=== PATIENT | male | born 1965 | race Hispanic/Latino ===

== ENCOUNTER 2020-06-03 14:29 | Emergency (ER) | payer OTHER, SELFPAY ==
[2020-06-03 16:07] LABS: Absolute Lymphocytes (CBC) 1.5 K/uL (0.7-4.9); Basophils % 0.4 % (0-1.3); Hematocrit 37.9 % (39.6-49.0); MPV 9.4 fL (7.6-11.3); RBC Red Blood Cell Count 4.35 M/uL (4.33-5.43)
[2020-06-03 16:12] LABS: Protime INR 1.07
[2020-06-03 16:34] LABS: ALT/SGPT 38 U/L (12-78); AST/SGOT 22 U/L (15-37); Albumin 3.2 g/dL (3.4-5.0); Alkaline Phosphatase 73 U/L (45-117); BUN Blood Urea Nitrogen 40 mg/dL (7-18); Bicarbonate 26 mmol/L (21-32); Bilirubin Direct 0.1 mg/dL (0-0.2); Bilirubin Total 0.4 mg/dL (0.2-1.0); Glucose Level 207 mg/dL (74-106); Magnesium 1.6 mg/dL (1.8-2.4); NT PRO-BNP 22 pg/mL (<125); Potassium 4.1 mmol/L (3.5-5.1); Protein, Total 6.9 g/dL (6.4-8.2); Sodium Level 137 mmol/L (136-145); Troponin (Emerg Dept Use Only) < 0.02 ng/mL (0.0-0.045)
--- NOTE | 2020-06-03 17:16 | EDPHYS ---
Physician Documentation [facility] Name: Juan Whitten Age: 54 yrs Sex: Male : 1965 Arrival Date: 06/03/2020 Time: 14:36 Bed 19 Private MD: ED Physician Aureliano Mccormick HPI: 06/03 14:54 This 54 yrs old Male presents to ER via Unassigned with complaints of jmm hypotension. 14:54 This is a 54 year old male with a history of DM, HTN, HLP that presents to the ED due jmm to low BP. Patient denies chest pain, shortness of breath, diarrhea, bleeding, vomiting. Patient states he takes 40 mg of lisinopril in the morning. Sent from office visit due to low blood pressure. . Historical: - Allergies: 18:40 Cephalexin; sv - PMHx: 18:40 Hypertension; sv - Immunization history:: Adult Immunizations up to date. - Social history:: Smoking status: Patient denies any tobacco usage or history of. ROS: 14:54 Constitutional: Negative for fever, chills, and weight loss, Cardiovascular: Negative jm for chest pain, palpitations, and edema, Respiratory: Negative for shortness of breath, cough, wheezing, and pleuritic chest pain, Abdomen/GI: Negative for abdominal pain, nausea, vomiting, diarrhea, and constipation, Neuro: Negative for headache, weakness, numbness, tingling, and seizure. 14:54 All other systems are negative. Exam: 14:54 Constitutional: This is a well developed, well nourished patient who is awake, alert, jmm and in no acute distress. Head/Face: atraumatic. Eyes: EOMI, no conjunctival erythema appreciated ENT: Moist Mucus Membranes Neck: Trachea midline, Supple Chest/axilla: Normal chest wall appearance and motion. Cardiovascular: Regular rate and rhythm. No edema appreciated Respiratory: Normal respirations, no respiratory distress appreciated Abdomen/GI: Non distended, soft Back: Normal ROM Skin: General appearance color normal MS/ Extremity: Moves all extremities, no obvious deformities appreciated, no edema noted to the lower extremities Neuro: Awake and alert, normal gait Psych: Behavior is normal, Mood is normal, Patient is cooperative and pleasant 17:03 ECG was reviewed by the Attending Physician. [facility] Vital Signs: 14:35 BP 101 / 65; Pulse 88; Resp 20; Pulse Ox 96% ; sv 14:42 BP 119 / 100 LA Sitting (auto/reg); dh4 14:42 BP 86 / 52; Pulse 86; Resp 22; Temp 98.2; Pulse Ox 95% on R/A; Weight 117.93 kg; Height dh4 5 ft. 6 in. (167.64 cm); 15:00 BP 102 / 57; Pulse 87; Resp 20; Pulse Ox 96% ; sv 15:30 BP 92 / 41; Pulse 83; Resp 20; Pulse Ox 96% ; sv 16:00 BP 96 / 61; Pulse 89; Resp 18; Pulse Ox 96% ; sv 17:09 BP 104 / 73 RA Supine (auto/lg); Pulse 90; Resp 20; Pulse Ox 95% on R/A; dh4 17:09 BP 114 / 79 RA Sitting (auto/lg); Pulse 92; Resp 22; Pulse Ox 95% on R/A; dh4 17:09 BP 112 / 65 RA Standing (auto/lg); Pulse 93; Resp 21; Pulse Ox 97% on R/A; dh4 14:42 Body Mass Index 41.96 (117.93 kg, 167.64 cm) dh4 MDM: 14:54 Patient medically screened. [facility] 17:13 Data reviewed: vital signs, nurses notes. Counseling: I had a detailed discussion with marshall the patient and/or guardian regarding: the historical points, exam findings, and any diagnostic results supporting the discharge/admit diagnosis, lab results, the need for outpatient follow up, to return to the emergency department if symptoms worsen or persist or if there are any questions or concerns that arise at home. ED course: Lab results reveal concerns for prerenal azotemia, possibly due to BP. Denies vomiting and states he drinks fluids in a reasonable amount. Labs otherwise normal. BP is trending up. Possibly due to lisinopril. Patient is advised to d/c use until. medication can be titrated by pcp. Patient is otherwise given strict return precautions. . 06/03 14:58 Order name: Basic Metabolic Panel; Complete Time: 16:35 [facility] 06/03 14:58 Order name: CBC with Diff; Complete Time: 16:24 [facility] 06/03 14:58 Order name: LFT's; Complete Time: 16:35 [facility] 06/03 14:58 Order name: Magnesium; Complete Time: 16:35 [facility] 06/03 14:58 Order name: NT PRO-BNP; Complete Time: 16:35 [facility] 06/03 14:58 Order name: PT-INR; Complete Time: 16:24 [facility] 06/03 14:58 Order name: Troponin (emerg Dept Use Only); Complete Time: 16:35 [facility] 06/03 14:58 Order name: EKG; Complete Time: 14:59 [facility] 06/03 14:58 Order name: Cardiac monitoring; Complete Time: 16:07 [facility] 06/03 14:58 Order name: EKG - Nurse/Tech; Complete Time: 16:07 [facility] 06/03 14:58 Order name: IV Saline Lock; Complete Time: 16:00 [facility] 06/03 14:58 Order name: Labs collected and sent; Complete Time: 16:00 [facility] 06/03 14:58 Order name: O2 Per Protocol; Complete Time: 16:00 [facility] 06/03 14:58 Order name: O2 Sat Monitoring; Complete Time: 16:00 [facility] EC:03 Rate is 85 beats/min. Rhythm is regular. QRS [place] is Normal. MD interval is normal. QRS jmm interval is normal. QT interval is normal. No Q waves. T waves are Normal. No ST changes noted. Reviewed by me. Administered Medications: 14:30 Drug: NS 0.9% 1000 ml {Note: administration began by EMS en route to ED.} Route: IV; ss Rate: 1 bolus; Site: left forearm; 15:45 Follow up: IV Status: Completed infusion; IV Intake: 1000ml ss Disposition: 06/03/20 17:15 Discharged to Home. Impression: Nonspecific low blood-pressure reading. - Condition is Stable. - Discharge Instructions: Hypotension. - Medication Reconciliation Form, Thank You Letter, Antibiotic Education, Prescription Opioid Use form. - Follow up: Private Physician; When: 2 - 3 days; Reason: Recheck today's complaints, Continuance of care, Re-evaluation by your physician. Addendum: 06/06/2020 08:26 Co-signature as Attending Physician, Aureliano Mccormick MD I agree with the assessment and k dr plan of care. Signatures: Dispatcher [employer] EDKari Xie RN RN sv Aureliano Mccormick MD MD kdr Mickail, Joel, PA PA jmm Smirch, Shelby, RN RN ss Corrections: (The following items were deleted from the chart) 06/03 17:57 17:15 06/03/2020 17:15 Discharged to Home. Impression: Nonspecific low blood-pressure sv reading. Condition is Stable. Forms are Medication Reconciliation Form, Thank You Letter, Antibiotic Education, Prescription Opioid Use. Follow up: Private Physician; When: 2 - 3 days; Reason: Recheck today's complaints, Continuance of care, Re-evaluation by your physician. marshall
--- NOTE | 2020-06-03 17:16 | ER ---
Nurse's Notes [facility] Name: Juan Whitten Age: 54 yrs Sex: Male : 1965 Arrival Date: 06/03/2020 Time: 14:36 Bed 19 Private MD: Diagnosis: Nonspecific low blood-pressure reading Presentation: 06/03 14:30 Chief complaint: EMS states: called out by the [place] office for hypotension of 60/30, sv negative orthostatics. Reports they took the BP on the left arm and it was 15 points less than the right arm. Denies dizziness. Coronavirus screen: Client denies travel out of the [place] in the last 14 days. At this time, the client does not indicate any symptoms associated with coronavirus-19. Ebola Screen: No symptoms or risks identified at this time. Initial Sepsis Screen: Does the patient meet any 2 criteria? No. Patient's initial sepsis screen is negative. Does the patient have a suspected source of infection? No. Patient's initial sepsis screen is negative. Risk Assessment: Do you want to hurt yourself or someone else? Patient reports no desire to harm self or others. Onset of symptoms was June 03, 2020. 14:30 Method Of Arrival: EMS: [facility] sv 14:36 Acuity: DONNA 2 sv Triage Assessment: 14:30 General: Appears in no apparent distress. comfortable, well groomed, well developed, sv Behavior is calm, cooperative, appropriate for age. Pain: Denies pain. Neuro: Level of Consciousness is awake, alert, obeys commands, Oriented to person, place, time, situation, Moves all extremities. Full function Gait is steady, Speech is normal, Denies dizziness. Respiratory: Respiratory effort is even, unlabored, Respiratory pattern is regular, symmetrical. Derm: Skin is intact, Skin is pink, warm \T\ dry. Musculoskeletal: Range of motion: intact in all extremities. Historical: - Allergies: 18:40 Cephalexin; sv - PMHx: 18:40 Hypertension; sv - Immunization history:: Adult Immunizations up to date. - Social history:: Smoking status: Patient denies any tobacco usage or history of. Screenin:35 Abuse screen: Denies threats or abuse. Denies injuries from another. Nutritional sv screening: No deficits noted. Tuberculosis screening: No symptoms or risk factors identified. Fall Risk None identified. Assessment: 16:00 Reassessment: Patient appears in no apparent distress at this time. No changes from sv previously documented assessment. Patient and/or family updated on plan of care and expected duration. Pain level reassessed. Patient is alert, oriented x 3, equal unlabored respirations, skin warm/dry/pink. 17:57 Reassessment: Patient appears in no apparent distress at this time. No changes from sv previously documented assessment. Patient and/or family updated on plan of care and expected duration. Pain level reassessed. Patient is alert, oriented x 3, equal unlabored respirations, skin warm/dry/pink. Vital Signs: 14:35 BP 101 / 65; Pulse 88; Resp 20; Pulse Ox 96% ; sv 14:42 BP 119 / 100 LA Sitting (auto/reg); dh4 14:42 BP 86 / 52; Pulse 86; Resp 22; Temp 98.2; Pulse Ox 95% on R/A; Weight 117.93 kg; Height 4 5 ft. 6 in. (167.64 cm); 15:00 BP 102 / 57; Pulse 87; Resp 20; Pulse Ox 96% ; sv 15:30 BP 92 / 41; Pulse 83; Resp 20; Pulse Ox 96% ; sv 16:00 BP 96 / 61; Pulse 89; Resp 18; Pulse Ox 96% ; sv 17:09 BP 104 / 73 RA Supine (auto/lg); Pulse 90; Resp 20; Pulse Ox 95% on R/A; dh4 17:09 BP 114 / 79 RA Sitting (auto/lg); Pulse 92; Resp 22; Pulse Ox 95% on R/A; dh4 17:09 BP 112 / 65 RA Standing (auto/lg); Pulse 93; Resp 21; Pulse Ox 97% on R/A; dh4 14:42 Body Mass Index 41.96 (117.93 kg, 167.64 cm) 4 ED Course: 14:35 Arm band placed on. sv 14:35 Patient has correct armband on for positive identification. Bed in low position. Call sv light in reach. Side rails up X 1. secured entrance monitor on. Pulse ox on. NIBP on. Door closed. Head of bed elevated. 14:36 Patient arrived in ED. sv 14:36 Kari Almeida RN is Primary Nurse. sv 14:36 Triage completed. sv 14:49 Boaz Bridges PA is PHCP. [facility] 14:49 Aureliano Mccormick MD is Attending Physician. [facility] 17:57 No provider procedures requiring assistance completed. IV discontinued, intact, sv bleeding controlled, No redness/swelling at site. Pressure dressing applied. Administered Medications: 14:30 Drug: NS 0.9% 1000 ml {Note: administration began by EMS en route to ED.} Route: IV; ss Rate: 1 bolus; Site: left forearm; 15:45 Follow up: IV Status: Completed infusion; IV Intake: 1000ml ss Intake: 15:45 IV: 1000ml; Total: 1000ml. ss Outcome: 17:15 Discharge ordered by MD. [facility] 17:57 Patient left the ED. sv 17:57 Discharged to home ambulatory. sv 17:57 Condition: stable 17:57 Discharge instructions given to patient, Instructed on discharge instructions, follow up and referral plans. Demonstrated understanding of instructions, follow-up care. Signatures: Kari Almeida RN PA Boaz Bridges PA PA jmm Smirch, Shelby RN RN Levon Mcknight 4
[2020-06-03 18:07] VITALS: TEMP 98.2
[2020-06-03 18:14] VITALS: BP 112/65; O2SAT 97
== END 2020-06-03 17:57 | disposition home or self-care (01) ==
LOC: ER 14:29
DX: R03.1 Nonspecific low blood-pressure reading (principal); I10 Essential (primary) hypertension; Z88.1 Allergy status to other antibiotic agents
CPT/HCPCS: 36415; 80048; 80076; 83735; 83880; 84484; 85025; 85610; 93005; 96360; 99284

== ENCOUNTER 2020-06-07 12:23 | Emergency (ER) | payer OTHER ==
[2020-06-07 13:12] LABS: Absolute Lymphocytes (CBC) 1.6 K/uL (0.7-4.9); Basophils % 0.6 % (0-1.3); Hematocrit 38.9 % (39.6-49.0); Lymphocytes % 26.5 % (15.3-44.8); MPV 9.5 fL (7.6-11.3); RBC Red Blood Cell Count 4.49 M/uL (4.33-5.43)
[2020-06-07 13:24] LABS: Protime INR 1.07
[2020-06-07 13:32] LABS: ALT/SGPT 39 U/L (12-78); AST/SGOT 23 U/L (15-37); Albumin 3.2 g/dL (3.4-5.0); Alkaline Phosphatase 68 U/L (45-117); BUN Blood Urea Nitrogen 20 mg/dL (7-18); Bicarbonate 28 mmol/L (21-32); Bilirubin Direct 0.2 mg/dL (0-0.2); Bilirubin Total 0.6 mg/dL (0.2-1.0); Glucose Level 177 mg/dL (74-106); Lipase 245 U/L (73-393); Magnesium 1.7 mg/dL (1.8-2.4); NT PRO-BNP 108 pg/mL (<125); Potassium 4.2 mmol/L (3.5-5.1); Protein, Total 7.4 g/dL (6.4-8.2); Sodium Level 138 mmol/L (136-145); Troponin (Emerg Dept Use Only) < 0.02 ng/mL (0.0-0.045)
--- NOTE | 2020-06-07 14:20 | EDPHYS ---
Physician Documentation [facility] Name: Juan Whitten Age: 54 yrs Sex: Male : 1965 Arrival Date: 06/07/2020 Time: 12:29 Bed 3 Private MD: ED Physician Sravan Richter HPI: 06/07 14:07 This 54 yrs old Male presents to ER via EMS with complaints of Blood Pressure kaylie Problem. 14:07 sent for low blood pressure from al. Onset: The symptoms/episode began/occurred just kaylie prior to arrival. Severity of symptoms: At their worst the symptoms were very mild in the emergency department the symptoms are unchanged. The patient has experienced similar episodes in the past, a few times. Historical: - Allergies: 12:37 Cephalexin; bp - Home Meds: 12:37 atorvastatin 80 mg oral tab 1 tab once daily [Active]; glipizide 10 mg Oral tab 1 tab bp once daily [Active]; Insulin Glargine Sub-Q 65 unit [Active]; 12:39 insulin aspart subcutaneous subcutaneous 30 unit [Active]; isosorbide mononitrate 60 mg bp Oral Tb24 1 tab once daily [Active]; metformin 1,000 mg Oral tab 1 tab 2 times per day [Active]; sertraline 100 mg oral tab 1 tab once daily [Active]; - PMHx: 12:37 Hypertension; Gout; Diabetes - IDDM; Depression; bp - Immunization history:: Adult Immunizations up to date. - Social history:: Smoking status: Patient denies any tobacco usage or history of. - Family history:: not pertinent. ROS: 14:07 Constitutional: Negative for fever, chills, and weight loss, Eyes: Negative for injury, kaylie pain, redness, and discharge, ENT: Negative for injury, pain, and discharge, Neck: Negative for injury, pain, and swelling, Cardiovascular: Negative for chest pain, palpitations, and edema, Respiratory: Negative for shortness of breath, cough, wheezing, and pleuritic chest pain, Abdomen/GI: Negative for abdominal pain, nausea, vomiting, diarrhea, and constipation, Back: Negative for injury and pain, : Negative for injury, bleeding, discharge, and swelling, MS/Extremity: Negative for injury and deformity, Skin: Negative for injury, rash, and discoloration, Neuro: Negative for headache, weakness, numbness, tingling, and seizure, Psych: Negative for depression, anxiety, suicide ideation, homicidal ideation, and hallucinations, Allergy/Immunology: Negative for hives, rash, and allergies, Endocrine: Negative for neck swelling, polydipsia, polyuria, polyphagia, and marked weight changes, Hematologic/Lymphatic: Negative for swollen nodes, abnormal bleeding, and unusual bruising. Exam: 14:07 Constitutional: This is a well developed, well nourished patient who is awake, alert, kaylie and in no acute distress. Head/Face: Normocephalic, atraumatic. Eyes: Pupils equal round and reactive to light, extra-ocular motions intact. Lids and lashes normal. Conjunctiva and sclera are non-icteric and not injected. Cornea within normal limits. Periorbital areas with no swelling, redness, or edema. ENT: Nares patent. No nasal discharge, no septal abnormalities noted. Tympanic membranes are normal and external auditory canals are clear. Oropharynx with no redness, swelling, or masses, exudates, or evidence of obstruction, uvula midline. Mucous membranes moist. Neck: Trachea midline, no thyromegaly or masses palpated, and no cervical lymphadenopathy. Supple, full range of motion without nuchal rigidity, or vertebral point tenderness. No Meningismus. Chest/axilla: Normal chest wall appearance and motion. Nontender with no deformity. No lesions are appreciated. Cardiovascular: Regular rate and rhythm with a normal S1 and S2. No gallops, murmurs, or rubs. Normal PMI, no JVD. No pulse deficits. Respiratory: Lungs have equal breath sounds bilaterally, clear to auscultation and percussion. No rales, rhonchi or wheezes noted. No increased work of breathing, no retractions or nasal flaring. Abdomen/GI: Soft, non-tender, with normal bowel sounds. No distension or tympany. No guarding or rebound. No evidence of tenderness throughout. Back: No spinal tenderness. No costovertebral tenderness. Full range of motion. Male : Normal genitalia with no discharge or lesions. Skin: Warm, dry with normal turgor. Normal color with no rashes, no lesions, and no evidence of cellulitis. MS/ Extremity: Pulses equal, no cyanosis. Neurovascular intact. Full, normal range of motion. Neuro: Awake and alert, GCS 15, oriented to person, place, time, and situation. Cranial nerves II-XII grossly intact. Motor strength 5/5 in all extremities. Sensory grossly intact. Cerebellar exam normal. Normal gait. Psych: Awake, alert, with orientation to person, place and time. Behavior, mood, and affect are within normal limits. 14:07 Musculoskeletal/extremity: DVT Exam: No signs of deep vein thrombosis. no pain, no swelling, no tenderness, negative Homans' sign noted on exam, no appreciated bluish discoloration, no erythema, no increased warmth. 14:19 ECG was reviewed by the Attending Physician. [facility] Vital Signs: 12:30 BP 70 / 54; Pulse 70; Resp 16; Temp 98; Pulse Ox 98% ; Weight 115.67 kg; Height 5 ft. 6 bp in. (167.64 cm); 13:00 BP 129 / 91; Pulse 73; Resp 16; Pulse Ox 98% ; zb 14:00 BP 77 / 49; Pulse 62; Resp 14; Pulse Ox 92% on R/A; zb 15:00 BP 88 / 61; Pulse 78; Resp 16; Pulse Ox 97% ; bp 16:00 BP 99 / 66; Pulse 73; Resp 15; Pulse Ox 98% on 2 lpm NC; bp 17:00 BP 97 / 63; Pulse 64; Resp 16; Pulse Ox 98% ; bp 18:00 BP 112 / 77; Pulse 82; Resp 16; Pulse Ox 98% ; bp 19:26 BP 112 / 68; Pulse 78; Resp 24; Temp 97.8; Pulse Ox 99% on 2 lpm NC; rr5 12:30 Body Mass Index 41.16 (115.67 kg, 167.64 cm) bp MDM: 12:41 Patient medically screened. [facility] 14:09 Differential Diagnosis sepsis. Data reviewed: vital signs, nurses notes, old medical [facility] records, lab test result(s), EKG, radiologic studies, CT scan, plain films. 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 Test interpretation: by ED physician or midlevel provider: ECG, plain radiologic studies. 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 06/07 12:42 Order name: Basic Metabolic Panel; Complete Time: 14:11 bp 06/07 12:42 Order name: CBC with Diff; Complete Time: 14:11 bp 06/07 12:42 Order name: LFT's; Complete Time: 14:11 bp 06/07 12:42 Order name: Magnesium; Complete Time: 14:11 bp 06/07 12:42 Order name: NT PRO-BNP; Complete Time: 14:11 bp 06/07 12:42 Order name: PT-INR; Complete Time: 14:11 bp 06/07 12:42 Order name: Troponin (emerg Dept Use Only); Complete Time: 14:11 bp 06/07 12:42 Order name: Basic Metabolic Panel [facility] 06/07 12:42 Order name: CBC with Diff [facility] 06/07 12:42 Order name: LFT's [facility] 06/07 12:42 Order name: Magnesium [facility] 06/07 12:42 Order name: NT PRO-BNP [facility] 06/07 12:42 Order name: PT-INR [facility] 06/07 12:42 Order name: Troponin (emerg Dept Use Only) [facility] 06/07 12:42 Order name: XRAY Chest (1 view); Complete Time: 15:08 [facility] 06/07 12:42 Order name: Lipase; Complete Time: 14:11 [facility] 06/07 13:04 Order name: Glucose, Ancillary Testing; Complete Time: 14:11 EDMS 06/07 14:13 Order name: CT Chest Abdomen Pelvis W/O Contrast; Complete Time: 15:08 [facility] 06/07 15:12 Order name: Blood Culture Adult (2) [facility] 06/07 15:12 Order name: Lactate; Complete Time: 17:54 [facility] 06/07 15:12 Order name: Procalcitonin; Complete Time: 17:54 [facility] 06/07 15:12 Order name: Flu; Complete Time: 17:54 [facility] 06/07 15:12 Order name: COVID-19 [facility] 06/07 15:45 Order name: Urine Dipstick--Ancillary (enter results); Complete Time: 17:54 em1 06/07 12:42 Order name: EKG; Complete Time: 12:42 bp 06/07 12:42 Order name: Cardiac monitoring; Complete Time: 13:02 bp 06/07 12:42 Order name: EKG - Nurse/Tech; Complete Time: 13:02 bp 06/07 12:42 Order name: IV Saline Lock; Complete Time: 13:02 bp 06/07 12:42 Order name: Labs collected and sent; Complete Time: 13:02 bp 06/07 12:42 Order name: O2 Per Protocol; Complete Time: 13:02 bp 06/07 12:42 Order name: O2 Sat Monitoring; Complete Time: 13:02 bp 06/07 12:42 Order name: EKG; Complete Time: 12:43 kaylie 06/07 12:42 Order name: Cardiac monitoring; Complete Time: 13:03 kaylie 06/07 12:42 Order name: EKG - Nurse/Tech; Complete Time: 13:03 kaylie 06/07 12:42 Order name: IV Saline Lock; Complete Time: 13:03 kaylie 06/07 12:42 Order name: Labs collected and sent; Complete Time: 13:03 kaylie 06/07 12:42 Order name: O2 Per Protocol; Complete Time: 13:03 kaylie 06/07 12:42 Order name: O2 Sat Monitoring; Complete Time: 13:02 kaylie 06/07 12:42 Order name: Urine Dipstick-Ancillary (obtain specimen); Complete Time: 17:13 kaylie EC:19 Rate is 67 beats/min. Rhythm is regular. QRS [place] is Normal. [place] interval is normal. QRS kaylie interval is normal. QT interval is normal. No Q waves. T waves are Normal. No ST changes noted. Clinical impression: NSR w/ Non-specific ST/T Changes and No evidence of ischemia. Interpreted by me. Reviewed by me. Administered Medications: 13:00 Drug: NS 0.9% 1000 ml Route: IV; Rate: 1 bolus; Site: right forearm; bp 17:13 Follow up: IV Status: Completed infusion; IV Intake: 1000ml bp 14:30 Drug: NS 0.9% 1000 ml Route: IV; Rate: 1 bolus; Site: right antecubital; zb 15:20 Follow up: IV Status: Completed infusion; IV Intake: 1000ml bp 14:45 Drug: NS 0.9% 1000 ml Route: IV; Rate: 125 ml/hr; Site: right forearm; bp 19:27 Follow up: Response: No adverse reaction; IV Status: Infusion continued upon transfer; rr5 IV Intake: 250ml 14:45 Drug: Magnesium Sulfate 1 grams Route: IVPB; Infused Over: 1 hrs; Site: right forearm; bp 17:20 Follow up: IV Status: Completed infusion; IV Intake: 100ml bp 15:30 Drug: Pepcid 20 mg Route: IVP; Site: right forearm; bp 17:19 Follow up: Response: No adverse reaction bp 15:30 Drug: Decadron - Dexamethasone 6 mg Route: IVP; Site: right forearm; bp 17:19 Follow up: Response: No adverse reaction bp 15:30 Drug: Aspirin 81 mg Route: PO; bp 17:19 Follow up: Response: No adverse reaction bp 15:30 Drug: levofloxacin 500 mg Volume: 100 ml; Route: IVPB; Infused Over: 60 mins; Site: bp right forearm; 17:19 Follow up: IV Status: Completed infusion; IV Intake: 150ml bp 15:30 Drug: Lovenox 100 mg Route: Sub-Q; Site: right lower abdomen; bp 17:18 Follow up: Response: No adverse reaction bp 16:00 Drug: Zithromax 500 mg Route: IVPB; Infused Over: 1 hrs; Site: right forearm; bp 17:18 Follow up: IV Status: Completed infusion; IV Intake: 100ml bp Disposition: 06/07/20 14:19 Transfer ordered to [facility]. Diagnosis are Hypotension, Type 1 diabetes mellitus, Obesity, unspecified, Unspecified kidney failure - chronic, Pneumonia, unspecified organism - multifocal, bilateral, Hypomagnesemia. - Reason for transfer: Higher level of care. - Accepting physician is to al. - Condition is Stable. - Problem is new. - Symptoms have improved. Signatures: Dispatcher [employer] EDMS Sravan Richter MD MD cha Peltier, Brian RN RN bp Sourav Gonzalez RN RN rr5 Hanny Hatch RN RN zb Corrections: (The following items were deleted from the chart) 12:46 12:42 Chest Single View+RAD.RAD.BRZ ordered. EDMS EDMS 14:18 14:14 Orthostatics ordered. kaylie kaylie 14:20 14:19 06/07/2020 14:19 Transfer ordered to [facility]. Diagnosis kaylie is Hypotension; Type 1 diabetes mellitus; Obesity, unspecified. Reason for transfer: Higher level of care. Accepting physician is to al. Condition is Stable. Problem is new. Symptoms have improved. kaylie 15:15 14:20 06/07/2020 14:19 Transfer ordered to [facility]. Diagnosis kaylie is Hypotension; Type 1 diabetes mellitus; Obesity, unspecified; Unspecified kidney failure - chronic. Reason for transfer: Higher level of care. Accepting physician is to al. Condition is Stable. Problem is new. Symptoms have improved. kaylie 19:39 15:15 06/07/2020 14:19 Transfer ordered to [facility]. Diagnosis rr5 is Hypotension; Type 1 diabetes mellitus; Obesity, unspecified; Unspecified kidney failure - chronic; Pneumonia, unspecified organism - multifocal, bilateral; Hypomagnesemia. Reason for transfer: Higher level of care. Accepting physician is to al. Condition is Stable. Problem is new. Symptoms have improved. kaylie
--- NOTE | 2020-06-07 14:20 | ER ---
Nurse's Notes [facility] Name: Juan Whitten Age: 54 yrs Sex: Male : 1965 Arrival Date: 06/07/2020 Time: 12:29 Bed 3 Private MD: Diagnosis: Hypotension;Type 1 diabetes mellitus;Obesity, unspecified;Unspecified kidney failure-chronic;Pneumonia, unspecified organism-multifocal, bilateral;Hypomagnesemia Presentation: 06/07 12:30 Chief complaint: EMS states[facility]YMPTOMATIC. Coronavirus bp screen: At this time, the client does not indicate any symptoms associated with coronavirus-19. Ebola Screen: No symptoms or risks identified at this time. Initial Sepsis Screen: Does the patient meet any 2 criteria? No. Patient's initial sepsis screen is negative. Does the patient have a suspected source of infection? No. Patient's initial sepsis screen is negative. Risk Assessment: Do you want to hurt yourself or someone else? Patient reports no desire to harm self or others. Onset of symptoms is unknown. Care prior to arrival: IV initiated. 20 GA, in the right antecubital area. 12:30 Method Of Arrival: EMS: [facility] bp 12:30 Acuity: DONNA 3 bp Triage Assessment: 12:30 General: Appears in no apparent distress. comfortable, obese, Behavior is calm, bp cooperative, appropriate for age. Pain: Denies pain. EENT: No deficits noted. Neuro: Level of Consciousness is awake, alert, obeys commands, Oriented to person, place, time, situation, Appropriate for age. Cardiovascular: No deficits noted. Respiratory: No deficits noted. GI: No signs and/or symptoms were reported involving the gastrointestinal system. : No signs and/or symptoms were reported regarding the genitourinary system. Derm: No deficits noted. Musculoskeletal: No deficits noted. Historical: - Allergies: 12:37 Cephalexin; bp - Home Meds: 12:37 atorvastatin 80 mg oral tab 1 tab once daily [Active]; glipizide 10 mg Oral tab 1 tab bp once daily [Active]; Insulin Glargine Sub-Q 65 unit [Active]; 12:39 insulin aspart subcutaneous subcutaneous 30 unit [Active]; isosorbide mononitrate 60 mg bp Oral Tb24 1 tab once daily [Active]; metformin 1,000 mg Oral tab 1 tab 2 times per day [Active]; sertraline 100 mg oral tab 1 tab once daily [Active]; - PMHx: 12:37 Hypertension; Gout; Diabetes - IDDM; Depression; bp - Immunization history:: Adult Immunizations up to date. - Social history:: Smoking status: Patient denies any tobacco usage or history of. - Family history:: not pertinent. Screenin:30 Abuse screen: Denies threats or abuse. Denies injuries from another. Nutritional bp screening: No deficits noted. Tuberculosis screening: No symptoms or risk factors identified. Fall Risk None identified. Assessment: 12:30 General: SEE TRIAGE NOTE. bp 14:31 Reassessment: bp 77/49 notified MD Richter. Rechecked BP manually 72/50. MD ordered zb 1000ml of NS. 14:35 Reassessment: blood pressure 81/55, Pt took to CT. NS bolus hanging. zb 15:00 Reassessment: No changes from previously documented assessment. Patient and/or family bp updated on plan of care and expected duration. Pain level reassessed. Patient is alert, oriented x 3, equal unlabored respirations, skin warm/dry/pink. CXR GROSSLY ABNORMAL, SUSPECTED COVID PNA PER RADIOLOGY. MD NOTIFIED. Respiratory: Breath sounds are coarse bilaterally. 16:00 Reassessment: No changes from previously documented assessment. Patient and/or family bp updated on plan of care and expected duration. Pain level reassessed. Patient is alert, oriented x 3, equal unlabored respirations, skin warm/dry/pink. TRANSFER IN PROCESS. 17:00 Reassessment: No changes from previously documented assessment. Patient and/or family bp updated on plan of care and expected duration. Pain level reassessed. Patient is alert, oriented x 3, equal unlabored respirations, skin warm/dry/pink. TRANSFER IN PROCESS. PT CONTINUES TO DENY S/S. 17:28 Reassessment: Report given to PA Gaston at the [facility]. Awaiting EMS for transfer, aa5 pt notified. . 18:00 Reassessment: Patient appears in no apparent distress at this time. No changes from bp previously documented assessment. Patient and/or family updated on plan of care and expected duration. Pain level reassessed. TRANSFER IN PROCESS. BP IMPROVED. 19:26 Reassessment: Patient appears in no apparent distress at this time. Patient is alert, rr5 oriented x 3, equal unlabored respirations, skin warm/dry/pink. report given to [facility] awake alert vital signs taken and recorded, no complaints made. Vital Signs: 12:30 BP 70 / 54; Pulse 70; Resp 16; Temp 98; Pulse Ox 98% ; Weight 115.67 kg; Height 5 ft. 6 bp in. (167.64 cm); 13:00 BP 129 / 91; Pulse 73; Resp 16; Pulse Ox 98% ; zb 14:00 BP 77 / 49; Pulse 62; Resp 14; Pulse Ox 92% on R/A; zb 15:00 BP 88 / 61; Pulse 78; Resp 16; Pulse Ox 97% ; bp 16:00 BP 99 / 66; Pulse 73; Resp 15; Pulse Ox 98% on 2 lpm NC; bp 17:00 BP 97 / 63; Pulse 64; Resp 16; Pulse Ox 98% ; bp 18:00 BP 112 / 77; Pulse 82; Resp 16; Pulse Ox 98% ; bp 19:26 BP 112 / 68; Pulse 78; Resp 24; Temp 97.8; Pulse Ox 99% on 2 lpm NC; rr5 12:30 Body Mass Index 41.16 (115.67 kg, 167.64 cm) bp ED Course: 12:29 Patient arrived in ED. bp 12:30 Arm band placed on. bp 12:30 Patient has correct armband on for positive identification. Bed in low position. Call bp light in reach. Side rails up X2. 12:30 Maintain EMS IV. Dressing intact. Good blood return noted. Site clean \T\ dry. Gauge \T\ zb site: 20 GAUGE LEFT FA. 12:34 Robert Wright, PA is Primary Nurse. bp 12:36 Triage completed. bp 12:41 Sravan Richter MD is Attending Physician. kaylie 14:05 XRAY Chest (1 view) In Process Unspecified. EDMS 14:41 CT Chest Abdomen Pelvis W/O Contrast In Process Unspecified. EDMS 19:27 No provider procedures requiring assistance completed. Patient transferred, IV remains rr5 in place. intact, No redness/swelling at site. Administered Medications: 13:00 Drug: NS 0.9% 1000 ml Route: IV; Rate: 1 bolus; Site: right forearm; bp 17:13 Follow up: IV Status: Completed infusion; IV Intake: 1000ml bp 14:30 Drug: NS 0.9% 1000 ml Route: IV; Rate: 1 bolus; Site: right antecubital; zb 15:20 Follow up: IV Status: Completed infusion; IV Intake: 1000ml bp 14:45 Drug: NS 0.9% 1000 ml Route: IV; Rate: 125 ml/hr; Site: right forearm; bp 19:27 Follow up: Response: No adverse reaction; IV Status: Infusion continued upon transfer; rr5 IV Intake: 250ml 14:45 Drug: Magnesium Sulfate 1 grams Route: IVPB; Infused Over: 1 hrs; Site: right forearm; bp 17:20 Follow up: IV Status: Completed infusion; IV Intake: 100ml bp 15:30 Drug: Pepcid 20 mg Route: IVP; Site: right forearm; bp 17:19 Follow up: Response: No adverse reaction bp 15:30 Drug: Decadron - Dexamethasone 6 mg Route: IVP; Site: right forearm; bp 17:19 Follow up: Response: No adverse reaction bp 15:30 Drug: Aspirin 81 mg Route: PO; bp 17:19 Follow up: Response: No adverse reaction bp 15:30 Drug: levofloxacin 500 mg Volume: 100 ml; Route: IVPB; Infused Over: 60 mins; Site: bp right forearm; 17:19 Follow up: IV Status: Completed infusion; IV Intake: 150ml bp 15:30 Drug: Lovenox 100 mg Route: Sub-Q; Site: right lower abdomen; bp 17:18 Follow up: Response: No adverse reaction bp 16:00 Drug: Zithromax 500 mg Route: IVPB; Infused Over: 1 hrs; Site: right forearm; bp 17:18 Follow up: IV Status: Completed infusion; IV Intake: 100ml bp Intake: 15:20 IV: 1000ml; Total: 1000ml. bp 17:13 IV: 1000ml; Total: 2000ml. bp 17:18 IV: 100ml; Total: 2100ml. bp 17:19 IV: 150ml; Total: 2250ml. bp 17:20 IV: 100ml; Total: 2350ml. bp 19:27 IV: 250ml; Total: 2600ml. rr5 Outcome: 14:19 ER care complete, transfer ordered by kaylie 19:27 Transferred by ground EMS to [facility], [facility], Transfer form completed. rr5 19:27 Condition: stable 19:27 Instructed on the need for transfer. 19:39 Patient left the ED. rr5 Signatures: Dispatcher [employer] EDSravan Tay MD MD cha Calderon, Audri, RN RN aa5 Robert Wright, RN RN Sourav Das RN RN rr5 Hanny Hatch RN RN zb
[2020-06-07] MEDS ORDERED: MAGNESIUM SULFATE 1 gm IVPB 0 GM/0 ML BAG IV ONE (14:37)
[2020-06-07] MEDS ORDERED: NA CHLORIDE 0.9% 1,000 ML ONE ×2 (14:38→15:19)
--- NOTE | 2020-06-07 14:57 | RAD REPORT ---
EXAM DESCRIPTION: CT - Chest Abd Pelvis Wo Con - 06/07/2020 2:41 pm CLINICAL HISTORY: Cough;Abdominal distention COMPARISON: none TECHNIQUE: Computed axial tomography of the chest, abdomen and pelvis was obtained. Oral contrast wa s given. IV contrast was not requested. All CT scans are performed using dose optimization technique as appropriate and may include automated exposure control or mA/KV adjustment according to patient size. FINDINGS: The evaluation of mediastinum, altagracia, vessels and solid organs is limited secondary to the lack of IV contrast administration No mediastinal or hilar lymphadenopathy is seen. A pleural effusion is not present. A pericardial effusion is not seen. Coronary arterial calcificatio ns Mild to moderate bilateral patchy ground-glass opacities The liver, spleen, pancreas, adrenals and kidneys appear grossly normal There is no evidence of diverticulitis. Normal appendix. Small left inguinal hernia contains fat. Sma ll inguinal hernia IMPRESSION: Mild to moderate patchy ground-glass opacities within the lungs may indicate Covid pneum onia or pneumonitis
--- NOTE | 2020-06-07 14:57 | RAD REPORT ---
EXAM DESCRIPTION: Lianna Single View06/07/2020 2:05 pm CLINICAL HISTORY: Cough COMPARISON: none FINDINGS: Mild to moderate patchy lung opacities The heart is normal size IMPRESSION: Mild to moderate patchy lung opacities may indicate pneumonia
[2020-06-07] MEDS ORDERED: MAGNESIUM SULFATE 1 gm IVPB 1 GM/100 ML BAG IV ONE (15:19)
[2020-06-07 16:20] LABS: Urine Blood NEGATIVE (NEG); Urine Glucose 2+ (NEG); Urine Protein 2+ (NEG)
[2020-06-07] MEDS ORDERED: dexAMETHasone 4 MG/ML VIAL ONE (16:21)
[2020-06-07] MEDS ORDERED: ASPIRIN 81 MG CHEWABLE TABLET ONE (16:21)
[2020-06-07] MEDS ORDERED: ENOXAPARIN 100 MG/ML SYR SQ ONE (16:21)
[2020-06-07] MEDS ORDERED: FAMOTIDINE 20 MG/2 ML VIAL IV ONE (16:22)
[2020-06-07] MEDS ORDERED: Levofloxacin500mg IV 500 MG/100 ML BAG IV ONE (16:22)
[2020-06-07] MEDS ORDERED: AZITHROMYCIN IV 500 MG in NA CHLORIDE 0.9% 250 ML IVPB ONE (17:00)
[2020-06-08 01:00] VITALS: BP 112/68; TEMP 97.8; O2SAT 99
--- NOTE | 2020-06-08 07:25 | EKG ---
Test Date: 2020-06-07 Test Time: 12:54:44 Application Development Consultant: BP MEASUREMENT RESULTS: Intervals: Rate: 67 NH: 146 QRSD: 80 QT: 378 QTc: 399 [place]: P: 35 NH: 146 QRS: 31 T: 44 INTERPRETIVE STATEMENTS: Normal sinus rhythm Nonspecific ST abnormality Abnormal ECG Compared to ECG 06/03/2020 16:05:20 ST (T wave) deviation now present Electronically Signed On 06-08-20 07:24:28 MACHINE OPERATOR by Denver Ham
== END 2020-06-07 19:39 ==
LOC: ER 12:23
DX: J18.9 Pneumonia, unspecified organism (principal); E83.42 Hypomagnesemia; E11.22 Type 2 diabetes mellitus with diabetic chronic kidney disease; I12.9 Hypertensive chronic kidney disease with stage 1 through stage 4 chronic kidney disease, or unspecified chronic kidney disease; N18.9 Chronic kidney disease, unspecified; F32.9 Major depressive disorder, single episode, unspecified; Z79.4 Long term (current) use of insulin; Z88.1 Allergy status to other antibiotic agents
CPT/HCPCS: 93005 ×2; 87040 ×2; 85025; 80048; 36415; 83735; 85610; 82947; 80076; 83605; 81003; 84484; 83690; 84145; 83880; 87804 ×2; 71250; 74176; 71045; J1100; J0456; J3475; J1650; J7050; J7030 ×2; 96361; 96365; 96367; 96372; 96375; 99285; U0002